=== PATIENT | male | born 1985 | race Caucasian/White ===

== ENCOUNTER 2019-05-07 03:14 | Emergency (ER) | payer SELFPAY ==
[2019-05-07 03:46] VITALS: BP 124/91
--- NOTE | 2019-05-07 04:21 | ED Physician Documentation ---
History of Present Illness - Stated complaint Stated Complaint: FIT FOR CONFINEMENT - Chief complaint Chief Complaint: General - History obtained from History obtained from: Patient, Police - History of Present Illness Pain level now: 0 - Additonal information Additional information: brought to [facility] by police for legal blood draw on suspicion of DUI. Patient de katrin injury, has no medical complaints. he is brought to ED for medical clearance for fpc. Review of Systems Cardiac: denies: Chest pain / pressure Respiratory: denies: Dyspnea GI: denies: Abdominal Pain PD PAST MEDICAL HISTORY - Past Medical History Past Medical History: No Other Past Medical History: pt states, "no, none documented" to medical history. - Past Surgical History Past Surgical History: No - Social History Does the pt smoke?: No Smoking Status: Never smoker Does the pt drink ETOH?: Yes Does the pt have substance abuse?: No - Immunizations Immunizations are current?: Yes PD ED PE NORMAL - Vitals Vital signs reviewed: Yes - General General: Alert and oriented X 3, No acute distress, Well developed/nourished - HEENT HEENT: PERRL, EOMI - Cardiac Cardiac: RRR, No murmur - Respiratory Respiratory: No respiratory distress, Clear bilaterally - Abdomen Abdomen: Soft, Non tender Results - Vitals Vitals: Vital Signs - 24 hr 05/07/19 03:41 Temperature 36.9 C Heart Rate 91 Respiratory 14 Rate Blood Pressure 124/91 H O2 Saturation 96 Oxygen O2 Source Room air PD MEDICAL DECISION MAKING - ED course Complexity details: considered differential, d/w patient ED course: calm and cooperative in ED, cleared for confinement. I attempted to contact Michaela Ruffin to provide information regarding this patients ED evaluation but number went to . Departure - Departure Disposition: 01 Home, Self Care Clinical Impression: Medical clearance for incarceration Condition: Good Instructions: ED DUI Discharge Date/Time: 05/07/19 04:31
== END 2019-05-07 04:31 | disposition home or self-care (01) ==
LOC: ED 03:14
DX: Z02.89 Encounter for other administrative examinations (principal); Z02.83 Encounter for blood-alcohol and blood-drug test
CPT/HCPCS: 99281

== ENCOUNTER 2020-07-02 08:00 | Outpatient (CLI) | payer SELFPAY ==
--- NOTE | 2020-07-02 11:24 | XRAY Report ---
PROCEDURE: Chest 2 View X-Ray INDICATIONS: COUGH TECHNIQUE: 2 view(s) of the chest. COMPARISON: None. FINDINGS: Surgical changes and devices: None. Lungs and pleura: No pleural effusions or pneumothorax. Lungs are clear. Mediastinum: Mediastinal contours are normal. Heart size is normal. Bones and chest wall: No suspicious bony abnormalities. Soft tissues appear unremarkable. IMPRESSION: Normal for age, source of current symptoms is not seen. Reviewed by: Julio Oneal MD on 07/02/2020 11:23 AM PDT Approved by: Julio Oneal MD on 07/02/2020 11:23 AM PDT Station ID: [id number]
[2020-07-02 16:33] LABS: BASOPHILS # (AUTO) 0.1 10^3/uL (0.0-0.1); BASOPHILS % (AUTO) 0.9 %; EOSINOPHILS # (AUTO) 0.4 10^3/uL (0.0-0.7); EOSINOPHILS % (AUTO) 5.5 %; HGB - HEMOGLOBIN 14.8 g/dL (14.0-18.0); LYMPHOCYTES # (AUTO) 1.9 10^3/uL (1.5-3.5); LYMPHOCYTES % (AUTO) 24.1 %; MEAN CORPUSCULAR HGB CONC 31.4 g/dL (32.0-36.0); MEAN CORPUSCULAR VOLUME 95.7 fL (80.0-94.0); MEAN PLATELET VOLUME 10.4 fL (7.4-11.4); MONOCYTES # (AUTO) 0.6 10^3/uL (0.0-1.0); MONOCYTES % (AUTO) 7.7 %; NEUTROPHILS # (AUTO) 4.8 10^3/uL (1.5-6.6); NEUTROPHILS % (AUTO) 61.7 %; PLT - PLATELET COUNT 289 10^3/uL (130-450); RED BLOOD COUNT 4.93 10^6/uL (4.70-6.10); RED CELL DISTRIBUTION WIDTH 12.6 % (12.0-15.0); WHITE BLOOD COUNT 7.8 x10^3/uL (4.8-10.8)
[2020-07-02 17:23] LABS: ALBUMIN 4.5 g/dL (3.2-5.5); ALBUMIN/GLOBULIN RATIO 1.7 (1.0-2.2); CREATININE 0.9 mg/dL (0.6-1.2); TOTAL PROTEIN 7.2 g/dL (6.7-8.2)
== END 2020-07-02 23:59 | disposition home or self-care (01) ==
LOC: DI.S 08:00
PROVIDERS: ATTEND Physician Assistant Medical
DX: R05 Cough (principal); R06.02 Shortness of breath; F17.210 Nicotine dependence, cigarettes, uncomplicated; R53.83 Other fatigue
CPT/HCPCS: 36415; 71046; 80053; 84443; 85025

== ENCOUNTER 2020-07-02 11:05 | Outpatient (CLI) | payer SELFPAY | END 2020-07-02 11:06 | disposition home or self-care (01) | LOC: LAB.R 11:05 | PROVIDERS: ATTEND Physician Assistant Medical | DX: R53.83 Other fatigue (principal); Z20.828 Contact with and (suspected) exposure to other viral communicable diseases ==

== ENCOUNTER 2023-03-15 15:46 | Outpatient (CLI) | payer SELFPAY | END 2023-03-15 23:59 | disposition critical access hospital (66) | LOC: EMS 15:46 | DX: F41.9 Anxiety disorder, unspecified (principal); R06.4 Hyperventilation; F12.90 Cannabis use, unspecified, uncomplicated | CPT/HCPCS: A0425; A0429 ==

== ENCOUNTER 2023-03-15 16:09 | Emergency (ER) | payer OTHER ==
--- NOTE | 2023-03-15 16:29 | ED Physician Documentation ---
PD HPI ALTERED MENTAL STATUS - Stated complaint Stated Complaint: ADVERSE REACTION - Chief complaint Chief Complaint: General - History obtained from History obtained from: Patient, EMS - History of Present Illness Timing - onset: How many minutes ago (30), Today PD PAST MEDICAL HISTORY - Past Surgical History Past Surgical History: No - Present Medications Home Medications: Ambulatory Orders Medication Instructions Recorded Confirmed Albuterol Sulf [Ventolin Hfa 2 - 3 puffs INH QID 15 Days #1 each 03/15/23 Inhaler] Amox/Clav 875/125 [Augmentin] 1 each PO Q12H #12 tablet 03/15/23 dexAMETHasone [Decadron] 4 mg PO DAILY #5 tablet 03/15/23 - Allergies Allergies/Adverse Reactions: Allergies Allergy/AdvReac Type Severity Reaction Status Date / Time No Known Drug Allergies Allergy Verified 03/15/23 16:50 - Social History Does the pt smoke?: No Smoking Status: Never smoker Does the pt drink ETOH?: Yes Does the pt have substance abuse?: No - Immunizations Immunizations are current?: Yes PD ED PE NORMAL - Vitals Vital signs reviewed: Yes - General General: Alert and oriented X 3, Well developed/nourished, Other (very anxious initial presentation. he is somewhat tearful, alternating with anxious and apologetic.) - HEENT HEENT: Atraumatic - Neck Neck: Supple, no meningeal sign, No adenopathy - Cardiac Cardiac: RRR, No murmur - Respiratory Respiratory: No respiratory distress. No: Clear bilaterally (diffuse moderate wheezing. Some coarse sounds left base. No accesory muscle use. Sats 88-92% RA. ) Results - Vitals Vitals: Vital Signs - 24 hr 03/15/23 03/15/23 03/15/23 16:13 16:16 16:59 Temperature 37.2 C Heart Rate 97 85 80 Respiratory 24 18 18 Rate Blood Pressure 138/93 H 123/75 O2 Saturation 95 95 03/15/23 19:11 Temperature Heart Rate 85 Respiratory 16 Rate Blood Pressure 127/84 H O2 Saturation 98 Oxygen O2 Source Room air - Rads (name of study) chest xray Relevant Findings:: Prelim report reviewed, EMP independent interpretation of test (elevated left diaphragm and some infutrlate left base. ), See rad report PD Medical Decision Making - ED course Complexity details: re-evaluated patient (he was calming here in ED. However still anxious. Given Diazepam 2.5 mg PO as this should help counter the ill effects of the CBD/THC. However, I presume symptoms occurred with his usual doses due to concurrent illness, apparent pneumonia/asthma exac and mild hypoxia. ), considered differential (he had anxiety response and tearful after taking his usual dose of THC and CBD as drinkable about an hour [employer]. He has not had this type of reaction before. He denies co-ingestion, other medicaitons. He has had URI illness the past week with increased cough and wheezing the past couple of days.), d/w patient, d/w family Social Determinants of Health: he was camping with family the past 3 days. He states ate wel and did not feel dehydrated. ED course: he had apparent adverse symptoms from usual cannibis. Recent illness and he is having wheezing. Denies being dehydrated, though was camping the past 3 days. I believe the adverse symptoms of the cannibis are transient and not concerning beyond short term clearing. Focus of treatment then targetted his wheezing, cough and defining extend of illness to help those symptoms. Given albuterol neb treatment with improvement in his wheezing. He is able then to talk more consistently and sounds are much less wheezing. He is still sat-ing at low 90%s. Given repeat albutero and is more open breathing. He is comfortable. Lung sounds much less wheezing. He did have several good clearing coughs after that and spat out some sputum. he then was saturating more consistent 96-7%. He is appearing more stable and comfortable for discharge. Will treat as asthma exacerbation. with pneumonia. He can cut down on the cannibis dosing until feeling better. Departure - Departure Disposition: 01 Home, Self Care Clinical Impression: Adverse effect of cannabis, initial encounter, Wheezing Pneumonia Qualifiers: Pneumonia type: due to unspecified organism Laterality: left Lung location: lower lobe of lung Qualified Code(s): J18.9 - Pneumonia, unspecified organism Condition: Stable Record reviewed to determine appropriate education?: Yes Instructions: ED Pneumonia Adult Prescriptions: Amox/Clav 875/125 [Augmentin] 1 each PO Q12H #12 tablet dexAMETHasone [Decadron] 4 mg PO DAILY #5 tablet Albuterol Sulf [Ventolin Hfa Inhaler] 2 - 3 puffs INH QID 15 Days #1 each Comments: You are having wheezing and your oxygen level is slightly low compared to normal. Your chest x-ray shows a mild pneumonia in the left lower lung. I think your adverse reaction to the cannabis relates to concurrent illness having a more prominent effect than usual. Decrease dose of the cannabis over the next several days to a week compared to usual. We will treat the respiratory infection and pneumonia with a combination of albuterol inhaler 2 to 3 puffs 4 times daily over the next week or so and then as needed beyond that. Also Augmentin antibiotic twice daily for 6 more days. Given the wheezing component, it suggests some inflammation through the airways and probably some mucous plugging. I would add Decadron steroid anti- inflammatory daily for 5 more days as well. Try to have a good purposeful deep breathing and coughing is a good thing actually. The inhaler should help with the opening the airway and sputum production. I would minimize cough suppressants per se. I would anticipate improvement over the next several days. Return if worse. I sent your prescriptions to [facility] pharmacy. Discharge Date/Time: 03/15/23 19:17
[2023-03-15] MEDS ORDERED: ALBUTEROL NEB 2.5 MG/3 ML INH STA ×2 (16:51→17:24)
[2023-03-15] MEDS ORDERED: diazePAM 5 MG TABLET PO STA (16:52)
--- NOTE | 2023-03-15 17:06 | XRAY Report ---
PROCEDURE: Chest 1 View X-Ray INDICATIONS: cough/ dyspnea TECHNIQUE: One view of the chest was acquired. COMPARISON: 07/02/2020 FINDINGS: Surgical changes and devices: None. Lungs and pleura: Elevated left hemidiaphragm associated with atelectasis and or infiltrate. Low vinh g volumes accentuate pulmonary interstitium and heart size. Mediastinum: Mediastinal contours appear normal. Heart size is normal. Bones and chest wall: No suspicious bony lesions. Overlying soft tissues appear unremarkable. IMPRESSION: Elevated left hemidiaphragm associated with basilar atelectasis and or infiltrate Reviewed by: Trell Kim MD on 03/15/2023 4:05 PM AKCHRIS Approved by: Trell Kim MD on 03/15/2023 4:05 PM AKDT Station ID: [id number]
[2023-03-15] MEDS ORDERED: AMOX/CLAV 875 MG/125 MG TABLET PO STA (17:13)
[2023-03-15] MEDS ORDERED: DEXAMETHASONE 10 MG/ML VIAL PO STA (17:14)
[2023-03-15] MEDS ORDERED: CHERRY SYRUP 10 ML UDC PO ONE (17:14)
[2023-03-15 19:15] VITALS: BP 127/84
== END 2023-03-15 19:17 | disposition home or self-care (01) ==
LOC: ED 16:09
DX: J18.9 Pneumonia, unspecified organism (principal); T40.711A Poisoning by cannabis, accidental (unintentional), initial encounter; R06.2 Wheezing
CPT/HCPCS: 71045; 94640; 99284; A9270